=== PATIENT | male | born 1955 | race African-American/Black ===

== ENCOUNTER 2016-12-10 03:40 | Inpatient (IN) | payer MEDICAID, OTHER ==
[~2016-12-10] VITALS: Ht 185.4 cm; Wt 72.6 kg
[2016-12-10] MEDS ORDERED: LORazepam 2 MG/ML VIAL IM ONE (04:30)
[2016-12-10] MEDS ORDERED: DiphenhydrAMINE HCL 50 MG/ML VIAL IM ONE (04:30)
[2016-12-10] MEDS ORDERED: HALOPERIDOL LACTATE 5 MG/ML VIAL IM ONE (04:30)
[2016-12-10 05:29] LABS: BASOPHILS % (AUTO) 0.2 % (0.0-2.0); EOSINOPHILS % (AUTO) 0.4 % (1.0-6.0); HEMATOCRIT 33.7 % (41-53); HEMOGLOBIN 11.1 g/dL (13.5-17.5); LYMPHOCYTES # (AUTO) 0.9 K/uL (1.0-4.8); MEAN CORPUSCULAR HEMOGLOBIN 30.6 pg (26.0-34.0); MEAN CORPUSCULAR HGB CONC 32.8 G/dL (31.0-37.0); MEAN CORPUSCULAR VOLUME 93 fL (80-100); MONOCYTES # (AUTO) 0.5 K/uL (0.1-1.0); MONOCYTES % (AUTO) 8.2 % (2.0-9.0); NEUTROPHILS # (AUTO) 4.7 K/uL (1.8-7.7); NEUTROPHILS % (AUTO) 77.2 % (40.0-70.0); RED BLOOD CELL COUNT(AUTO) 3.62 MIL/uL (4.50-5.90); RED CELL DISTRIBUTION WIDTH 13.8 % (11.5-14.5); WHITE BLOOD COUNT (AUTO) 6.1 K/uL (4.5-11.0)
[2016-12-10 05:43] LABS: ALANINE AMINOTRANSFERASE 23 U/L (12-78); ALBUMIN 3.3 g/dL (3.4-5.0); ANION GAP 10 mmol/L (8-16); ASPARTATE AMINOTRANSFERASE 31 U/L (15-37); BILIRUBIN,TOTAL 0.2 mg/dL (0.1-1.0); CALCIUM, TOTAL 8.2 mg/dL (8.8-10.5); CARBON DIOXIDE 29 mmol/L (22-29); CHLORIDE 108 mmol/L (98-107); CREATININE 1.13 mg/dL (0.60-1.30); GLOMERULAR FILTR. RATE CALC > 60 mL/min (>60); SODIUM SERUM 147 mmol/L (136-145); TOTAL PROTEIN, SERUM 6.6 g/dL (6.4-8.2); UREA NITROGEN, BLOOD 14 mg/dL (7-18)
[2016-12-10 05:47] LABS: POTASSIUM 2.9 mmol/L (3.5-5.1)
[2016-12-10 05:56] LABS: PLATELET COUNT (AUTO) 99 K/uL (150-450)
[2016-12-10] MEDS ORDERED: POTASSIUM CHLORIDE 20 MEQ ER TABLET PO ONE (06:00)
[2016-12-10] MEDS ORDERED: MAG HYDROX/AL HYDROX/SIMETH ES 30 ML SUSPENSION UDCUP PO PRN (06:45)
[2016-12-10] MEDS ORDERED: ZOLPIDEM TARTRATE 10 MG TABLET PO PRN (06:45)
[2016-12-10] MEDS ORDERED: MAGNESIUM HYDROXIDE SUSPENSION 30 ML UDCUP PO PRN (06:45)
[2016-12-10] MEDS ORDERED: HALOPERIDOL 5 MG TABLET PO PRN (06:45)
[2016-12-10] MEDS ORDERED: ACETAMINOPHEN 325 MG TABLET PO PRN (06:45)
[2016-12-10 11:44] VITALS: BP 109/74
[2016-12-10] MEDS ORDERED: INFLUENZA VIRUS VACCINE QVS 2016-17 (3YR+)/PF 60 MCG/0.5 ML SYRINGE IM ONE (12:15)
[2016-12-10 16:25] VITALS: BP 123/70
[2016-12-10] MEDS: QUEtiapine FUMARATE 300 MG TABLET PO SCH (20:56)
[2016-12-10] MEDS: PRAZOSIN HCL 2 MG CAPSULE PO SCH ×2 (21:00→21:57)
[2016-12-11 07:07] VITALS: BP 125/76
[2016-12-11 08:10] VITALS: BP_SYST 109
[2016-12-11] MEDS: FLUoxetine HCL 20 MG CAPSULE PO SCH (08:35)
[2016-12-11 12:40] VITALS: BP 114/75
[2016-12-11 13:40] VITALS: BP 117/71
[2016-12-11 16:00] VITALS: BP 110/73
[2016-12-11] MEDS: LORazepam 2 MG TABLET PO PRN (19:07)
[2016-12-11] MEDS: PRAZOSIN HCL 2 MG CAPSULE PO SCH (21:03)
[2016-12-11] MEDS: QUEtiapine FUMARATE 300 MG TABLET PO SCH (21:03)
[2016-12-12 06:40] VITALS: BP 108/63
[2016-12-12] MEDS: FLUoxetine HCL 20 MG CAPSULE PO SCH (08:32)
[2016-12-12 08:36] VITALS: BP 108/71
[2016-12-12] MEDS: LORazepam 2 MG TABLET PO PRN (13:41)
[2016-12-12 16:47] VITALS: BP 109/74
[2016-12-12] MEDS: QUEtiapine FUMARATE 300 MG TABLET PO SCH (19:58)
[2016-12-12 20:00] VITALS: BP 98/68
[2016-12-12] MEDS: PRAZOSIN HCL 2 MG CAPSULE PO SCH (20:06)
[2016-12-13 06:44] VITALS: BP 110/63
[2016-12-13] MEDS: FLUoxetine HCL 20 MG CAPSULE PO SCH (08:26)
[2016-12-13 08:35] LABS: CHOL/HDL RATIO 2.3 (4.2-7.3); THYROID STIMULATING HORMONE 3.02 uIU/mL (0.36-3.74)
[2016-12-13 08:38] VITALS: BP 106/67
[2016-12-13] MEDS ORDERED: PRAZ2 PO (13:27)
[2016-12-13] MEDS ORDERED: FLUO-191 PO (13:27)
[2016-12-13] MEDS ORDERED: QUET300T2 PO (13:27)
[2016-12-14 14:39] LABS: HEPATITIS Bs ANTIGEN SCREEN P Negative (Negative); HEPATITIS C AB SCREEN <0.1 s/co ratio (0.0-0.9)
== END 2016-12-13 14:40 | disposition home or self-care (01) | DRG 750 ==
LOC: EMS 03:42 → B3A 09:47
PROVIDERS: ADMIT Psychiatry & Neurology Psychiatry; ATTEND Psychiatry & Neurology Psychiatry
DX: F25.0 Schizoaffective disorder, bipolar type (principal); E87.0 Hyperosmolality and hypernatremia; R45.851 Suicidal ideations; D69.6 Thrombocytopenia, unspecified; F22 Delusional disorders; E86.0 Dehydration; R45.87 Impulsiveness; D64.9 Anemia, unspecified; Z62.819 Personal history of unspecified abuse in childhood; F19.20 Other psychoactive substance dependence, uncomplicated; E87.6 Hypokalemia; F60.3 Borderline personality disorder; F17.210 Nicotine dependence, cigarettes, uncomplicated; Z88.0 Allergy status to penicillin; Z87.892 Personal history of anaphylaxis; Z91.5 Personal history of self-harm; Z28.21 Immunization not carried out because of patient refusal
CPT/HCPCS: 80074; 82306; 82607; 82746; 83036; 84132; 84443; 96372; 99285; G0480; J1200; J1630; J2060